=== PATIENT | male | born 1940 | race African-American/Black ===

== ENCOUNTER 2017-09-03 17:34 | Emergency (ER) | payer MEDICARE ==
[2017-09-03 18:13] LABS: APPEARANCE CLEAR (CLEAR); BASOPHILS 0.1 % (0-2); BILIRUBIN NEGATIVE (NEGATIVE); COLOR YELLOW (YELLOW); EOSINOPHILS 0.1 % (0-7); GLUCOSE NEGATIVE (NEGATIVE); HEMATOCRIT 40.6 % (42.0-54.0); HEMOGLOBIN 13.6 g/dL (13.5-17.5); IMMATURE GRANULOCYTES 0.2 % (0-5); KETONE NEGATIVE (NEGATIVE); LYMPHOCYTES 46.7 % (15-50); MCH 29.1 pg (26.0-34.0); MCHC 33.5 g/dL (31.0-37.0); MCV 86.9 fL (80.0-100.0); MEAN PLATELET VOLUME 10.4 fL (7.4-10.4); MONOCYTES 3.3 % (2-11); NEUTROPHILS 49.6 % (40-80); NITRITE NEGATIVE (NEGATIVE); PLATELET COUNT 212 10x3/uL (130-400); PROTEIN NEGATIVE (NEGATIVE); RBC 4.67 10x6/uL (4.20-6.10); RDW 14.9 % (11.5-14.5); UROBILINOGEN NORMAL (NORMAL); WBC 16.2 10x3/uL (4.8-10.8)
[2017-09-03 18:23] LABS: UDS - AMPHET NEGATIVE QUAL (NEGATIVE); UDS - BARB NEGATIVE QUAL (NEGATIVE); UDS - BENZO NEGATIVE QUAL (NEGATIVE); UDS - COCAINE POSITIVE QUAL (NEGATIVE); UDS - OPIATE NEGATIVE QUAL (NEGATIVE); UDS - PCP NEGATIVE QUAL (NEGATIVE); UDS - THC NEGATIVE QUAL (NEGATIVE)
[2017-09-03 18:27] LABS: ALBUMIN 3.9 g/dL (3.4-5.0); ALKALINE PHOSPHATASE 121 U/L (46-116); ALT (SGPT) 21 U/L (10-68); BILIRUBIN - TOTAL 0.33 mg/dL (0.2-1.3); CALC OSMOLALITY 286 mosm/kg (275-300); CALCIUM 8.8 mg/dL (8.5-10.1); CARBON DIOXIDE 31.4 mmol/L (21.0-32.0); CHLORIDE - SERUM 105 mmol/L (98-107); CREATININE - SERUM 1.4 mg/dL (0.6-1.3); GLUCOSE 107 mg/dL (74-106); POTASSIUM - SERUM 3.6 mmol/L (3.5-5.1); PROTEIN - SERUM 7.8 g/dL (6.4-8.2); SODIUM 144 mmol/L (136-145); UREA NITROGEN 13 mg/dL (7-18); eGFR NON AFRICAN AMERICAN 52 mL/min (90-120)
[2017-09-03 18:31] LABS: TROPONIN-I < 0.017 ng/mL (0.000-0.060)
== END 2017-09-03 19:42 | disposition other institution (70) ==
LOC: D.ER 17:34
PROVIDERS: Emergency Medicine; Nurse Practitioner Family
DX: S06.5X9A Traumatic subdural hemorrhage with loss of consciousness of unspecified duration, initial encounter (principal); V43.52XA Car driver injured in collision with other type car in traffic accident, initial encounter; Y93.89 Activity, other specified; Y92.410 Unspecified street and highway as the place of occurrence of the external cause

== ENCOUNTER 2017-09-24 20:23 | Inpatient (IN) | payer MEDICARE ==
[~2017-09-24] VITALS: Ht 167.6 cm; Wt 65.9 kg
--- NOTE | ~2017-09-24 | PN ---
PATIENT:ETHAN CURRY MEDICAL RECORD: [id number] LOCATION:[facility] ADMISSION DATE: 09/24/17 PROGRESS NOTE DATE OF SERVICE: 10/01/2017 SUBJECTIVE: The patient's case was discussed with staff. He has no new complaint. OBJECTIVE: The patient is in good behavioral control with limited insight about his condition. He generally tolerates his medicines well. Eye contact is fair. Concentration is fair. ASSESSMENT: No change in diagnoses. PLAN: The patient has been a little bit anxious, and for this reason, I am going to give him a low dose of Klonopin at least for the next few days. There have been some changes in plans. The family is still going to take him back to [place], but it is going to be several weeks before they can do that for reasons that are complicated. I anticipate the patient can be transitioned out of the hospital soon if this level of improvement is maintained. There is evidence of a probable urinary tract infection. I will leave that to his primary care physician to treat. Obviously, treating the urinary tract infection will likely have an impact on his cognition and behavioral control that is favorable. TRANSINT:[id number] Voice Confirmation ID: [id number] DOCUMENT ID: [id number] SKY CULLEN MD at 1326 CC: [id number] DICTATION DATE: 10/01/17 1400 YARN WEIGHT AND STRENGTH TESTER: 10/01/17 1418 ADM IN [facility] [address] [id number]
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
--- NOTE | ~2017-09-24 | PN ---
PATIENT:ETHAN CURRY MEDICAL RECORD: [id number] LOCATION:[facility]112 ADMISSION DATE: 09/24/17 PROGRESS NOTE DATE OF SERVICE: 09/26/2017 SUBJECTIVE: The patient's case was discussed with staff. He has no new complaint. He tolerates his medicines well. ASSESSMENT: No change in diagnoses. PLAN: The patient was tested by Dr. Keren Ruiz today. Consistent with my bedside findings, he is in the severe range of impairment. He will be treated with memory enhancing medications. At this point, I have already started him on an antipsychotic medication, namely Trilafon to assist with his thought disorganization. In addition to this, I am going to discontinue the Seroquel since I would prefer that he not take 2 antipsychotics. It is clear that he is going to require 02-zpdx-e-day supervision. What is less apparent is what environment will be the least restrictive. TRANSINT:[id number] Voice Confirmation ID: [id number] DOCUMENT ID: [id number] SKY CULLEN MD at 0908 CC: [id number] DICTATION DATE: 09/26/17 1545 DESIGNER WRITER: 09/26/17 1608 ADM IN [facility] [address] [place] [address]
--- NOTE | ~2017-09-24 | PN ---
PATIENT:ETHAN CURRY MEDICAL RECORD: [id number] LOCATION:ELYSSA [facility]Immanuel112 ADMISSION DATE: 09/24/17 PROGRESS NOTE DATE OF SERVICE: 10/03/2017 SUBJECTIVE: The patient asked the examiner "do you have a report." OBJECTIVE: The patient has continued to isolate a great deal. He does have urinary tract infection, but that is currently being treated. He had presented initially with a great deal of paranoid ideation and that has attenuated. At the present time, case management is working on placement, which likely will occur next week. On exam, mood is somewhat irritable. Affect is brittle. Speech is quite terse. Content of thought shows nonspecific paranoid ideation, but no suicidal or homicidal ideation. Sensorium is unchanged. ASSESSMENT: No change in diagnosis. PLAN: 1. Continue current medication. 2. Continue supportive therapy. TRANSINT:[id number] Voice Confirmation ID: [id number] DOCUMENT ID: [id number] DYLLAN DUENAS III, MD at 0553 CC: [id number] DICTATION DATE: 10/03/17 1416 RADIOGRAPHER: 10/03/17 1439 ADM IN [address] [id number] [place] [address]
--- NOTE | ~2017-09-24 | PN ---
PATIENT:ETHAN CURRY MEDICAL RECORD: [id number] LOCATION:ELYSSA YoungbloodFredis ADMISSION DATE: 09/24/17 PROGRESS NOTE DATE OF SERVICE: 10/02/2017 SUBJECTIVE: The patient's case was discussed with staff. He has no new complaint. OBJECTIVE: The patient is in good behavioral control with limited insight about his condition. He generally tolerates his medicines well. Eye contact is fair. ASSESSMENT: No change in diagnoses. PLAN: Current medicines have been reviewed. I am going to decrease the dose of the Klonopin slightly and would recommend tapering it off completely over the next few days. He will be transitioned out of the hospital early next week. TRANSINT:[id number] Voice Confirmation ID: [id number] DOCUMENT ID: [id number] SKY CULLEN MD at 1434 CC: [id number] DICTATION DATE: 10/02/17 1339 RN AMBULATORY: 10/02/17 1409 DIS IN 10/07/[address] [place] [address]
--- NOTE | ~2017-09-24 | PN ---
PATIENT:ETHAN CURRY MEDICAL RECORD: [id number] LOCATION:[facility]112 ADMISSION DATE: 09/24/17 PROGRESS NOTE DATE OF SERVICE: 09/30/2017 SUBJECTIVE: The patient's case was discussed with staff. He has no new complaint. OBJECTIVE: The patient denies intent to harm himself or others. He generally tolerates his medicines well. Eye contact is poor. ASSESSMENT: No change in diagnoses. PLAN: Current medicines and therapies have been reviewed. Both will be maintained. His long-term prognosis is guarded. TRANSINT:[id number] Voice Confirmation ID: [id number] DOCUMENT ID: [id number] SKY CULLEN MD at 1348 CC: [id number] DICTATION DATE: 09/30/17 1440 ANTHROPOLOGICAL LINGUIST: 09/30/17 1452 ADM IN [facility] [address] [place] [address]
--- NOTE | ~2017-09-24 | PN ---
PATIENT:ETHAN CURRY MEDICAL RECORD: [id number] LOCATION:ELYSSA YoungbloodFredis ADMISSION DATE: 09/24/17 PROGRESS NOTE DATE OF SERVICE: 10/06/2017 SUBJECTIVE: The patient again asks when he is going home. OBJECTIVE: The patient has been somewhat restless, but otherwise fairly well managed. He is tolerating medications well. Plans are for discharge tomorrow. On exam, mood is somewhat irritable. Affect is brittle and shallow. Speech is terse. Content of thought is negative for overt psychosis. Sensorium unchanged. ASSESSMENT: No change in diagnosis. PLAN: 1. Maintain current medication. 2. Continue supportive therapy. TRANSINT:[id number] Voice Confirmation ID: [id number] DOCUMENT ID: [id number] DYLLAN DUENAS III, MD at 1133 CC: [id number] DICTATION DATE: 10/06/17 1240 SERVICE OR WORK DISPATCHER CHIEF: 10/06/17 1405 ADM IN [address] [id number] [place] [id number]
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
--- NOTE | ~2017-09-24 | PN ---
PATIENT:ETHAN CURRY MEDICAL RECORD: [id number] LOCATION:ELYSSA YoungbloodFredis ADMISSION DATE: 09/24/17 PROGRESS NOTE DATE OF SERVICE: 09/27/2017 SUBJECTIVE: The patient's case was discussed with staff. He has no new complaint. OBJECTIVE: The patient denies intent to harm himself or others. He generally tolerates his medicines well. He was somewhat agitated last night and did require some p.r.n. Haldol. Today, he is much calmer. ASSESSMENT: No change in diagnoses. PLAN: Current medicines and therapies have been reviewed and will be maintained. Long-term prognosis is guarded. TRANSINT:[id number] Voice Confirmation ID: [id number] DOCUMENT ID: [id number] SKY CULLEN MD at 1433 CC: [id number] DICTATION DATE: 09/27/17916 CLINICAL SALES CONSULTANT: 09/27/17929 ADM IN [place] [place] [id number] [place] [id number]
--- NOTE | ~2017-09-24 | PN ---
PATIENT:ETHAN CURRY MEDICAL RECORD: [id number] LOCATION:ELYSSA [facility]blood112 ADMISSION DATE: 09/24/17 PROGRESS NOTE DATE OF SERVICE: 09/29/2017 SUBJECTIVE: The patient's case was discussed with staff. He has no new complaint. OBJECTIVE: The patient is anxious to be discharged. He wants to go to [place]. He has not been out of control. ASSESSMENT: No change in diagnoses. PLAN: The patient's dementia is advanced. He is not from here. All of his family and primary care physician are all in [place] and the family would like to take him back to [place]. That is going to be somewhat complicated, but I understand and will discharge him to the family's care for transportation back to [place] once he is a little more stable. I am going to increase the dose of the Trilafon and we will monitor him for clinical changes. TRANSINT:[id number] Voice Confirmation ID: [id number] DOCUMENT ID: [id number] SKY CULLEN MD at 1433 CC: [id number] DICTATION DATE: 09/29/17 1431 GREENSKEEPER: 09/29/17 1449 ADM IN [facility] [address] [place] [address]
--- NOTE | ~2017-09-24 | PN ---
PATIENT:ETHAN CURRY MEDICAL RECORD: [id number] LOCATION:ELYSSA [facility]112 ADMISSION DATE: 09/24/17 PROGRESS NOTE DATE OF SERVICE: 10/07/2017 SUBJECTIVE: No new complaint. OBJECTIVE: The patient is scheduled for discharge today. Discharge arrangements have been made. The patient is stable, taking medications as prescribed. No new problems. ASSESSMENT: No change in diagnosis. PLAN: The patient will be discharged today on current medications. TRANSINT:[id number] Voice Confirmation ID: [id number] DOCUMENT ID: [id number] DYLLAN DUENAS III, MD at 1019 CC: [id number] DICTATION DATE: 10/07/17 1143 BIOMEDICAL EQUIPMENT TECH: 10/07/17 1151 DIS IN [address] [place] [address]
[2017-09-25] MEDS ORDERED: KEPPRA500 MG PO (06:01)
[2017-09-25] MEDS ORDERED: PRINIVIL20 MG PO (06:02)
[2017-09-25] MEDS ORDERED: NORVASC10 MG PO (06:02)
[2017-09-25] MEDS ORDERED: SEROQUEL25 MG PO (06:02)
[2017-09-25] MEDS ORDERED: MIRALAX17 GM PO (06:03)
[2017-09-25] MEDS ORDERED: HYDROCHLOROTH12.5 M1 PO (06:03)
[2017-09-25] MEDS ORDERED: CENTRUM SILVER1 TA1 PO (06:04)
[2017-09-25 08:06] VITALS: BP 128/52
[2017-09-25 14:00] VITALS: BMI 23.4
[2017-09-26 09:11] VITALS: BP 119/64
[2017-09-26 19:11] VITALS: BP 160/80
[2017-09-27 07:44] VITALS: BP 104/50
[2017-09-27 19:50] VITALS: BP 150/72
[2017-09-28 07:00] VITALS: BP 149/78
[2017-09-28 20:16] VITALS: BP 132/70
[2017-09-28 21:58] VITALS: BP 132/70
[2017-09-29 07:23] VITALS: BP 120/54
[2017-09-29 12:20] VITALS: Ht 167.6 cm; Wt 65.9 kg
[2017-09-29 19:42] VITALS: BP 171/90
[2017-09-30 08:44] LABS: APPEARANCE CLEAR (CLEAR); BILIRUBIN NEGATIVE (NEGATIVE); COLOR YELLOW (YELLOW); GLUCOSE NEGATIVE (NEGATIVE); KETONE NEGATIVE (NEGATIVE); NITRITE NEGATIVE (NEGATIVE); PROTEIN NEGATIVE (NEGATIVE); SPECIFIC GRAVITY 1.015 (1.005-1.020); UROBILINOGEN NORMAL (NORMAL)
[2017-09-30 08:45] LABS: BACTERIA FEW /hpf (NONE SEEN); HYALINE CAST 0-5 /lpf (NONE SEEN); MUCUS <1+ /lpf (NONE SEEN); RED CELLS - URINE 0-5 /hpf (0-5); WHITE CELLS - URINE 0-5 /hpf (0-5)
[2017-09-30 09:33] VITALS: BP 139/85
[2017-09-30 20:42] VITALS: BP 142/66
[2017-10-01 11:57] VITALS: BP 155/83
[2017-10-01 19:45] VITALS: BP 124/64
[2017-10-02 07:30] VITALS: BP 129/75
[2017-10-02 19:23] VITALS: BP 146/74
[2017-10-03 08:12] VITALS: BP 150/81
[2017-10-03 19:41] VITALS: BP 141/73
[2017-10-04 08:03] VITALS: BP 111/73
[2017-10-04 19:09] VITALS: BP 120/63
[2017-10-05 08:24] VITALS: BP 117/80
[2017-10-05 19:19] VITALS: BP 131/66
[2017-10-06 10:28] VITALS: BP 130/77
[2017-10-06] MEDS ORDERED: NAMENDA5 MG PO (12:33)
[2017-10-06] MEDS ORDERED: PERPHENAZINE2 MG PO (12:34)
[2017-10-06] MEDS ORDERED: THERAGRAN M [BK1 TAB PO (12:34)
[2017-10-06 20:21] VITALS: BP 149/68
[2017-10-07 10:15] VITALS: BP 123/68
== END 2017-10-07 13:00 | disposition home or self-care (01) | DRG 57 ==
LOC: D.PSYCH 20:23
PROVIDERS: Psychiatry & Neurology Psychiatry
DX: G30.1 Alzheimer's disease with late onset (principal); F02.81 Dementia in other diseases classified elsewhere, unspecified severity, with behavioral disturbance; N39.0 Urinary tract infection, site not specified; I10 Essential (primary) hypertension; K59.09 Other constipation; G40.909 Epilepsy, unspecified, not intractable, without status epilepticus